=== PATIENT | female | born 1960 | race Caucasian/White ===

== ENCOUNTER 2020-07-12 22:09 | Inpatient (IN) ==
[2020-07-12] MEDS ORDERED: SODIUM CHLORIDE 0.9% 1000ML 2,000 ML IV ONE (22:40)
[2020-07-12] MEDS ORDERED: ACETAMINOPHEN 1,000 MG/100 ML VIAL IV STA (22:40)
[2020-07-12] MEDS ORDERED: TAMSULOSIN HCL 0.4 MG CAP PO ONE (22:40)
[2020-07-12] MEDS ORDERED: KETOROLAC TROMETHAMINE 15 MG/ML VIAL IV STA (22:40)
[2020-07-12] MEDS ORDERED: ONDANSETRON INJ 2 MG/ML 2 ML VIAL IV STA (22:40)
[2020-07-12] MEDS ORDERED: MoRPHine SULFATE 10 MG/ML CARP/VIAL IV STA (22:41)
[2020-07-12 23:18] LABS: Basophils # (auto) 0.01 K/uL (0-0.2); Basophils % (auto) 0.2 %; Eosinophils # (auto) 0.09 K/uL (0-0.5); Eosinophils % (auto) 1.5 %; Hematocrit (blood only) 35.5 % (37-47); Hemoglobin 11.8 g/dL (12.0-16.0); Immature Granulocytes # (auto) 0.01 K/uL (0.00-0.02); Immature Granulocytes % (auto) 0.2 %; Lymphocytes % (auto) 33.2 %; Mean Corpuscular Hemoglobin 31.6 pg (25-34); Mean Corpuscular Hgb Conc 33.2 g/dL (32-36); Mean Corpuscular Volume 95.2 fL (80-100); Mean Platelet Volume 8.4 fL (7.4-10.4); Monocytes # (auto) 0.38 K/uL (0.11-0.59); Monocytes % (auto) 6.3 %; Neutrophils # (auto) 3.53 K/uL (1.4-6.5); Neutrophils % (auto) 58.6 %; Platelet Count 215 K/uL (130-400); RDW Coefficient of Variation 13.2 % (11.5-14.5); RDW Standard Deviation 46.2 fL (36.4-46.3); Red Blood Count 3.73 M/uL (4.2-5.4); White Blood Count 6.02 K/uL (4.8-10.8)
[2020-07-12 23:34] LABS: Albumin Level 3.1 gm/dl (3.4-5.0); BUN Creatinine Ratio 23.2 (10-20); Calcium 8.1 mg/dl (8.5-10.1); Creatinine Clr Calc Pharmacy 59.1 ml/min; Potassium 3.9 mmol/L (3.5-5.1)
[2020-07-12 23:37] LABS: Bilirubin,Total 0.1 mg/dl (0.2-1); Globulin 3.1 gm/dl (2.5-4.0); Total Protein 6.2 gm/dl (6.4-8.2)
[2020-07-13 01:27] LABS: Appearance Urine Clear (Clear); Bacteria Urine Automated Negative (Negative); Bilirubin Urine Negative (Negative); Blood Urine 2+ (Negative); Color Urine Yellow; Glucose Urine UA Negative (Negative); Ketones Urine 1+ (Negative); Leukocyte Esterase Urine Negative (Negative); Nitrite Urine Negative (Negative); Protein Urine Negative (Negative); Specific Gravity Urine 1.025 (1.000-1.030); Urobilinogen Urine Negative (Negative)
--- NOTE | 2020-07-13 01:28 | Emergency Department Note ---
Impression & Plan Hydronephrosis due to obstruction of ureter, Ureterolithiasis, Nausea & vomiting, Intractable abdominal pain ED Provider Note NAME: VINNY DEWITT AGE: 59 SEX: F ARRIVES VIA: Walk-In INFORMANT: Patient, ED PROVIDER(S): Jasvir Obrien MD CHIEF COMPLAINT: Left sided abdominal pain PLAN: Disposition: Admit MEDICAL DECISION MAKING: The patient is a pleasant 59-year-old woman who presents emergency department with a acute worsening of left-sided flank and abdominal pain that began gradually on Monday seen by her PCP and had blood work performed as well as a CT scan without contrast on Monday who she reports she has yet to hear the results and also has a's ultrasound of her pelvis scheduled for Monday. However tonight she reports the pain became acutely worse and unbearable and so presents emergency department. She reports associated nausea but no vomiting. She denies any fevers, chills, cough, congestion, diarrhea. She denies any blood in her urine or burning with urination. She reports her recent urinalysis did not show infection. On arrival the patient is uncomfortable no acute distress, afebrile stable vital signs. She appears clinically dry. She has mild suprapubic and left flank discomfort without discrete tenderness. Of note, review we did review the [facility] records but unfortunately the CT report was not yet completed. I did review the images myself and there does appear to be mild-moderate left-sided hydronephrosis as well as the possibility of a 6 mm ureteral stone per my review which would correlate with the patient's symptoms and waxing and waning severity. WBC within normal limits. H/H 11.8/35.5 without prior values for comparison. Platelets within normal limits. Chemistry without acidosis. LFTs unremarkable. Lipase is not elevated. UA without evidence of infection but with RBCs. Given the patient recently had a CT scan we did attempt to avoid repeat scan if not needed and so KUB and ultrasound were ordered. KUB was performed and did not demonstrate any obvious calculus. Renal ultrasound demonstrates a 7 mm stone of the distal left ureter with associated mild left hydroureter nephrosis per preliminary stat read report. Upon re-evaluation the patient was feeling improved to still with some moderate pain but with recurring n/v. Thus given concern for patient's ability to consistently tolerate oral intake/medications we discussed option for admission for pain and nausea control, and likely urology consultation given size of stone. Patient was agreeable with this. Case was discussed with Dr. Whitlock, [facility] hospitalist, who will evaluate the patient for admission. Triage Nursing notes reviewed and agree them. Additional history obtained from [facility] records. Prior medical records reviewed Vital Signs: reviewed and remarkable for no significant abnormalities Differential diagnosis: Renal colic, UTI, appendicitis, diverticulitis, mesenteric ischemia, aortic pathology, infections, inflammatory bowel disease, PUD, biliary pathology, as well as other pathologies. ER treatment provided: See below. Diagnostics interpreted by me: Cardiac Monitoring: An order for continuous cardiac monitoring was placed and demonstrated normal sinus rhythm, 68 bpm, no ectopy. Laboratory studies: See below Imaging studies: KUB: Nonobstructive bowel gas pattern. No overt renal calculus. STATRAD: Preliminary Findings Only See Final Report For Complete Findings US RENAL: Multiple gallbladder stones. Negative for pericholecystic fluid. Normal right kidney. Mild left hydronephrosis and hydroureter Mild prominence of the distal left ureteral with a 7 mm stone within it Radiologist: Flaquito Mobley MD Study ready at 01:20 and initial results transmitted at 01:25 Consultation(s): Case was discussed with Dr. Whitlock, [facility] hospitalist, who will evaluate the patient for admission. HPI: The patient is a pleasant 59-year-old woman who presents emergency department with a acute worsening of left-sided flank and abdominal pain that began gradually on Monday seen by her PCP and had blood work performed as well as a CT scan without contrast on Monday who she reports she has yet to hear the results and also has a's ultrasound of her pelvis scheduled for Monday. However tonight she reports the pain became acutely worse and unbearable and so presents emergency department. She reports associated nausea but no vomiting. She denies any fevers, chills, cough, congestion, diarrhea. She denies any blood in her urine or burning with urination. She reports her recent urinalysis did not show infection. ROS: See above HPI for pertinent positives & negatives. A total of 10 systems reviewed and were otherwise negative. PAST MEDICAL HISTORY:See Below PAST SURGICAL HISTORY:See Below FAMILY HISTORY:See Below SOCIAL HISTORY:See Below HOME MEDICATIONS:See Below ALLERGIES:See Below VITALS:See Below PHYSICAL EXAMINATION: GENERAL: Awake, alert, uncomfortable-appearing, in no distress HENT: Normocephalic, atraumatic. Oropharynx with dry mucous membranes and otherwise unremarkable. EYES: Normal conjunctiva. Sclera non-icteric. NECK: Supple. No nuchal rigidity. FROM. No JVD. RESPIRATORY: Clear to auscultation. CARDIAC: Regular rate, normal rhythm. Extremities warm and well perfused. Pulses equal. ABDOMEN: Soft, non-distended. Mild suprapubic and left lower quadrant and flank discomfort without discrete tenderness to palpation. No rebound or guarding. No masses. RECTAL: Deferred. MUSCULOSKELETAL: Chest examination reveals no tenderness. The back is symmetrical on inspection without obvious abnormality. There is no CVA tende rness to palpation. No joint edema. LOWER EXTREMITIES: Calves are equal size bilaterally and non-tender. No edema. No discoloration. NEURO: Normal sensorium. No sensory or motor deficits noted. SKIN: No rash or jaundice noted. Jasvir Obrien MD Past Med/Surg History Medical History History of ovarian cyst Surgical History History of ankle surgery History of cystoscopy 01/05/06 with bladder sling History of gynecologic surgery vag sling operation for stress incont History of tubal ligation Family History Father Lymphoma Social History Smoking Status: Never smoker Hx Alcohol Use: Yes Alcohol type: wine Hx Substance Use: No Preferred Language: Jordanian Communication Ability: Effective Mobile [employer]r Required: No Beliefs That Will Affect Care: None marital status: Current Living Situation: Spouse Other Information That Helps Us Care for You: No Feels Safe at Home: Yes Safety Concerns: Feels Safe At This Time Assistive Devices: None Allergies Allergies Allergy/AdvReac Type Severity Reaction Status Date / Time No Known Drug Allergies Allergy Unknown Verified 07/12/20 23:48 Home Meds Home Medications Medication Instructions Recorded Confirmed No Known Home Medications 07/12/20 07/12/20 Results & Data (ED) Vital Signs Vital Signs - 24 hr 07/12/20 22:16 07/12/20 22:55 07/13/20 00:01 Temperature 36.8 C Temperature Source Oral Pulse Rate 104 H Pulse Rate [Right Finger] 85 68 Pulse Rhythm Regular Pulse Rhythm [Right Finger] Regular Pulse Strength Normal Respiratory Rate 23 16 16 Respiratory Effort / Characteristics Non-Labored Spontaneous Non-Labored Spontaneous Non-Labored Spontaneous Respiratory Depth Normal Normal Normal Respiratory Pattern Regular Blood Pressure 173/93 H Blood Pressure [Left Arm] 134/78 135/77 Blood Pressure Mean 119 Blood Pressure Mean [Left Arm] 96 96 Blood Pressure Position Sitting Pulse Oximetry 99 98 98 Oxygen Delivery Method Room Air Room Air Sepsis Recent Fever Within 48 Hours No Sepsis New/Unexplained Change in Mental Status No Sepsis Action Taken by Nursing No Action Required 07/13/20 02:01 07/13/20 03:00 Temperature Temperature Source Pulse Rate Pulse Rate [Right Finger] 62 73 Pulse Rhythm Pulse Rhythm [Right Finger] Regular Pulse Strength Respiratory Rate 14 18 Respiratory Effort / Characteristics Non-Labored Respiratory Depth Normal Normal Respiratory Pattern Blood Pressure Blood Pressure [Left Arm] 122/72 115/58 L Blood Pressure Mean Blood Pressure Mean [Left Arm] 88 77 Blood Pressure Position Pulse Oximetry 98 97 Oxygen Delivery Method Room Air Room Air Sepsis Recent Fever Within 48 Hours Sepsis New/Unexplained Change in Mental Status Sepsis Action Taken by Nursing Laboratory Data Attestation: I reviewed the patient's lab results. Result diagrams: 07/12/20 23:05 07/12/20 23:05 Lab Results 07/12/20 07/12/20 07/12/20 Range/Units 23:05 23:05 23:05 WBC 6.02 (4.8-10.8) K/uL RBC 3.73 L (4.2-5.4) M/uL Hgb 11.8 L (12.0-16.0) g/dL Hct 35.5 L (37-47) % MCV 95.2 (80-100) fL MCH 31.6 (25-34) pg MCHC 33.2 (32-36) g/dL RDW Std Deviation 46.2 (36.4-46.3) fL RDW Coeff of Bahman 13.2 (11.5-14.5) % Plt Count 215 (130-400) K/uL MPV 8.4 (7.4-10.4) fL Immature Gran % (Auto) 0.2 % Neut % (Auto) 58.6 % Lymph % (Auto) 33.2 % Stephens % (Auto) 6.3 % Eos % (Auto) 1.5 % Baso % (Auto) 0.2 % Neut # (Auto) 3.53 (1.4-6.5) K/uL Lymph # (Auto) 2.00 (1.2-3.4) K/uL Stephens # (Auto) 0.38 (0.11-0.59) K/uL Eos # (Auto) 0.09 (0-0.5) K/uL Baso # (Auto) 0.01 (0-0.2) K/uL Immature Gran # (Auto) 0.01 (0.00-0.02) K/uL Sodium 141 (136-145) mmol/L Potassium 3.9 (3.5-5.1) mmol/L Chloride 109 H (98-107) mmol/L Carbon Dioxide 28 (21-32) mmol/L Anion Gap 4.0 (3-11) BUN 21 H (7-18) mg/dl Creatinine 0.90 (0.6-1.2) mg/dl Est Cr Clr Drug Dosing 59.1 ml/min Est GFR ( Amer) 80.0 Est GFR (Non-Af Amer) 69.0 BUN/Creatinine Ratio 23.2 H (10-20) Glucose 110 H (70-99) mg/dl Calcium 8.1 L (8.5-10.1) mg/dl Total Bilirubin 0.1 L (0.2-1) mg/dl AST 18 (15-37) U/L ALT 19 (12-78) U/L Alkaline Phosphatase 69 (45-117) U/L Total Protein 6.2 L (6.4-8.2) gm/dl Albumin 3.1 L (3.4-5.0) gm/dl Globulin 3.1 (2.5-4.0) gm/dl Albumin/Globulin Ratio 1.0 (0.9-2) Lipase 173 (73-393) U/L Urine Color Cancelled Urine Appearance Cancelled Urine pH Cancelled Ur Specific Mccarr Cancelled Urine Protein Cancelled Urine Glucose (UA) Cancelled Urine Ketones Cancelled Urine Blood Cancelled Urine Nitrite Cancelled Urine Bilirubin Cancelled Urine Urobilinogen Cancelled Ur Leukocyte Esterase Cancelled Urine WBC (Auto) Cancelled Urine RBC (Auto) Cancelled U Hyaline Cast (Auto) Cancelled U Epithel Cells (Auto) Cancelled Urine Bacteria (Auto) Cancelled Ur Renal Epithelial Cell Cancelled Urine Crystals Cancelled Calcium Oxalate Crystal Cancelled Uric Acid Crystals Cancelled Triple Phos Crystals Cancelled Other Crystals Cancelled Amorphous Sediment Cancelled Granular Casts Cancelled Waxy Casts Cancelled RBC Casts Cancelled WBC Casts Cancelled Other Casts Cancelled Urine Mucus Cancelled Urine Other Cancelled Urine Trichomonas Cancelled Urine Yeast Cancelled Urine Sperm Cancelled Ur Oval Fat Bodies Cancelled 07/13/20 Range/Units 01:15 WBC (4.8-10.8) K/uL RBC (4.2-5.4) M/uL Hgb (12.0-16.0) g/dL Hct (37-47) % MCV (80-100) fL MCH (25-34) pg MCHC (32-36) g/dL RDW Std Deviation (36.4-46.3) fL RDW Coeff of Bahman (11.5-14.5) % Plt Count (130-400) K/uL MPV (7.4-10.4) fL Immature Gran % (Auto) % Neut % (Auto) % Lymph % (Auto) % Stephens % (Auto) % Eos % (Auto) % Baso % (Auto) % Neut # (Auto) (1.4-6.5) K/uL Lymph # (Auto) (1.2-3.4) K/uL Stephens # (Auto) (0.11-0.59) K/uL Eos # (Auto) (0-0.5) K/uL Baso # (Auto) (0-0.2) K/uL Immature Gran # (Auto) (0.00-0.02) K/uL Sodium (136-145) mmol/L Potassium (3.5-5.1) mmol/L Chloride (98-107) mmol/L Carbon Dioxide (21-32) mmol/L Anion Gap (3-11) BUN (7-18) mg/dl Creatinine (0.6-1.2) mg/dl Est Cr Clr Drug Dosing ml/min Est GFR ( Amer) Est GFR (Non-Af Amer) BUN/Creatinine Ratio (10-20) Glucose (70-99) mg/dl Calcium (8.5-10.1) mg/dl Total Bilirubin (0.2-1) mg/dl AST (15-37) U/L ALT (12-78) U/L Alkaline Phosphatase (45-117) U/L Total Protein (6.4-8.2) gm/dl Albumin (3.4-5.0) gm/dl Globulin (2.5-4.0) gm/dl Albumin/Globulin Ratio (0.9-2) Lipase (73-393) U/L Urine Color Yellow Urine Appearance Clear Urine pH 5.0 Ur Specific Mccarr 1.025 Urine Protein Negative Urine Glucose (UA) Negative Urine Ketones 1+ H Urine Blood 2+ H Urine Nitrite Negative Urine Bilirubin Negative Urine Urobilinogen Negative Ur Leukocyte Esterase Negative Urine WBC (Auto) 1-5 Urine RBC (Auto) 5-10 H U Hyaline Cast (Auto) 1-5 U Epithel Cells (Auto) 5-10 H Urine Bacteria (Auto) Negative Ur Renal Epithelial Cell Urine Crystals Calcium Oxalate Crystal Uric Acid Crystals Triple Phos Crystals Other Crystals Amorphous Sediment Granular Casts Waxy Casts RBC Casts WBC Casts Other Casts Urine Mucus Urine Other Urine Trichomonas Urine Yeast Urine Sperm Ur Oval Fat Bodies Administered Medications Sodium Chloride (Nss 1000ml) 1,000 mls @ 125 mls/hr IV .Q8H ANGLE Stop: 08/12/20 04:39 Last Admin: 07/13/20 04:40 Dose: 125 mls/hr Documented by: [id number] Discontinued Medications Hydromorphone HCl (Hydromorphone Inj 0.5 Mg/0.5 Ml Syr) Confirm Administered Dose 0.5 mg .ROUTE .STK-MED ONE Stop: 07/13/20 04:55 Last Admin: 07/13/20 05:02 Dose: 0.5 mg Documented by: [id number] Sodium Chloride (Nss 1000ml) 2,000 mls @ 999 mls/hr IV .Q2H1M ONE Stop: 07/13/20 00:40 Last Infusion: 07/13/20 01:09 Dose: 0 mls/hr Documented by: [id number] Admin: 07/12/20 22:47 Dose: 999 mls/hr Documented by: [id number] Acetaminophen (Ofirmev) 1,000 mg in 100 mls @ 400 mls/hr IV NOW STA Stop: 07/12/20 22:54 Last Infusion: 07/12/20 23:04 Dose: 0 mls/hr Documented by: [id number] Admin: 07/12/20 22:47 Dose: 400 mls/hr Documented by: [id number] Lactated Ringer's (Lr) 1,000 mls @ 125 mls/hr IV .Q8H ANGLE Stop: 08/12/20 02:14 Last Admin: 07/13/20 04:52 Dose: Not Given Documented by: [id number] Prochlorperazine (Compazine) 2 mls @ 1 mls/min IV ONE ONE Stop: 07/13/20 02:05 Last Admin: 07/13/20 02:14 Dose: 1 mls/min Documented by: [id number] Ketorolac Tromethamine (Ketorolac Tromethamine 15 Mg/Ml Vial) 15 mg IV NOW STA Stop: 07/12/20 22:41 Last Admin: 07/12/20 22:48 Dose: 15 mg Documented by: [id number] Ketorolac Tromethamine (Ketorolac Tromethamine 15 Mg/Ml Vial) 15 mg IV NOW STA Stop: 07/13/20 02:05 Last Admin: 07/13/20 02:14 Dose: 15 mg Documented by: [id number] Morphine Sulfate (Morphine Sulfate 10 Mg/Ml Carp/Vial) 6 mg IV NOW STA Stop: 07/12/20 22:42 Last Admin: 07/12/20 22:48 Dose: 6 mg Documented by: [id number] Morphine Sulfate (Morphine Sulfate 4 Mg/Ml 1 Ml Carp\Vial) 4 mg IV Q2H PRN PRN Reason: Pain Stop: 07/27/20 02:03 Last Admin: 07/13/20 04:04 Dose: 4 mg Documented by: [id number] Admin: 07/13/20 02:14 Dose: 4 mg Documented by: [id number] Ondansetron HCl (Ondansetron Inj 2 Mg/Ml 2 Ml Vial) 4 mg IV NOW STA Stop: 07/12/20 22:41 Last Admin: 07/12/20 22:49 Dose: 4 mg Documented by: [id number] Ondansetron HCl (Ondansetron Inj 2 Mg/Ml 2 Ml Vial) Confirm Administered Dose 4 mg .ROUTE .STK-MED ONE Stop: 07/13/20 04:55 Last Admin: 07/13/20 05:02 Dose: 4 mg Documented by: [id number] Tamsulosin HCl (Tamsulosin Hcl 0.4 Mg Cap) 0.4 mg PO NOW ONE Stop: 07/12/20 22:41 Last Admin: 07/12/20 22:47 Dose: 0.4 mg Documented by: [id number] Discharge Plan Visit Data Chief Complaint: Abdominal Pain Stated Complaint: ABDOMINAL PAIN ED Provider: Jasvir Obrien Discharge Problem: Hydronephrosis due to obstruction of ureter, Ureterolithiasis, Nausea & vomiting, Intractable abdominal pain Patient Disposition: Admitted As Inpatient Discharge Instructions Interventions: ED Discharge Assessment Last Done: 07/13/20 04:05 Discharge Problem: Nausea & vomiting Qualifiers: Vomiting type: unspecified Vomiting Intractability: unspecified Qualified Code(s): R11.2 - Nausea with vomiting, unspecified
[2020-07-13] MEDS ORDERED: PROCHLORPERAZINE 2 ML IV ONE (02:04)
[2020-07-13] MEDS ORDERED: KETOROLAC TROMETHAMINE 15 MG/ML VIAL IV STA (02:04)
[2020-07-13] MEDS: MoRPHine SULFATE 4 MG/ML 1 ML CARP\\VIAL IV PRN ×2 (02:14→04:04)
[2020-07-13] MEDS ORDERED: LACTATED RINGER'S 1,000 ML IV SCH (02:15)
[2020-07-13] MEDS ORDERED: HYDROmorphone INJ 0.5 MG/0.5 ML SYR IV PRN (04:40)
[2020-07-13] MEDS ORDERED: ONDANSETRON INJ 2 MG/ML 2 ML VIAL IV PRN ×2 (04:40→11:12)
[2020-07-13] MEDS: SODIUM CHLORIDE 0.9% 1000ML 1,000 ML IV SCH ×3 (04:40→22:45)
[2020-07-13] MEDS ORDERED: ACETAMINOPHEN 325 MG TAB PO PRN (04:40)
[2020-07-13] MEDS ORDERED: KETOROLAC TROMETHAMINE 15 MG/ML VIAL IV PRN (04:40)
--- NOTE | 2020-07-13 04:48 | History and Physical Report ---
DATE OF ADMISSION: 07/13/2020 CHIEF COMPLAINT: Left flank pain. HISTORY OF PRESENT ILLNESS: This is a 59-year-old female with past medical history significant for Lyme disease, was having left flank pain since last Monday, saw the PCP on July 08 and had a CAT scan ordered, she did not have the results yet, but in the epic the CAT scan showing mild dilatation of left renal pelvis, 4 mm calcification present in the left pelvis in the region of the left ureter suggesting a distal ureteral calculus.The patient came here with significant left flank pain and nausea and had a couple of episodes of vomiting in the ER and imaging studies here, renal ultrasound showing the preliminary report, distal left 7 mm stone with left hydronephrosis and hydroureter. The patient required significant pain medications in the ER, still has some soreness and some nausea. Denies any fever, chills. Denies any hematuria or burning micturitions. No chest pain, no shortness of breath, no cough, no headache, no blurred vision, no earache, no runny nose, no sore throat, no dysphagia, no loss of sense of smell or taste. No exposure to any COVID patients. No rash, no swelling in the legs. ALLERGIES: No known drug allergies. PAST MEDICAL HISTORY: As mentioned above. PAST SURGICAL HISTORY: Ligation of oviducts, repair of the bladder defect, colonoscopy. MEDICATIONS: None currently. FAMILY HISTORY: Significant for maternal grandfather, diabetes. Mother had macular degeneration. SOCIAL HISTORY: No smoking, no alcohol, no drug use. REVIEW OF SYMPTOMS: As per HPI. Rest of review of symptoms negative. PHYSICAL EXAMINATION: GENERAL: The patient is of moderate build, not in acute distress. VITAL SIGNS: Temperature 36.8, pulse 73, respiratory rate 18, blood pressure 115/58, oxygen 97% room air. HEENT: Pupils equal, round, reactive to light. Oral mucosa moist. NECK: No JVD, no neck masses. CARDIOVASCULAR: S1, S2 heard, regular rate and rhythm, no murmur, no gallop. RESPIRATORY SYSTEM: Normal AP diameter. No accessory muscle use. No wheezing, no crackles. ABDOMEN: Soft, bowel sounds present, nontender. No distention, no CVA tenderness present, no guarding, no rigidity. CENTRAL NERVOUS SYSTEM: Cranial nerves II-XII grossly intact. Nonfocal. EXTREMITIES: No edema, no erythema. LABORATORY DATA: WBC 6.6, hemoglobin 11.8, hematocrit 35.5, platelets 215. Sodium 141, potassium 3.9, chloride 109, bicarbonate 28, BUN 21, creatinine 0.9, serum glucose 110, calcium 8.1, total bilirubin 0.1, AST 18, ALT 19, alkaline phosphatase 69, lipase 173. Urinalysis +2 blood, +1 ketones. Renal ultrasound 7 mm left distal ureteral stone. ASSESSMENT AND PLAN: This is a 59-year-old female presents with renal colic. 1. Renal colic Distal left ureter stone 7 mm in renal ultrasound and 4 mm in CAT scan done as outpatient. Is having significant pain requiring pain medications.No signs of infection. We will admit to medical floor. Will keep n.p.o. except meds, IV fluids, IV pain meds p.r.n., and consult urology in the a.m. for further recommendations. 2. Deep venous thrombosis prophylaxis, sequential compression devices. DISPOSITION: To be monitored in medical floor. MTDD
[2020-07-13] MEDS ORDERED: ONDANSETRON INJ 2 MG/ML 2 ML VIAL ONE (04:54)
[2020-07-13] MEDS ORDERED: HYDROmorphone INJ 0.5 MG/0.5 ML SYR ONE (04:54)
[2020-07-13] MEDS ORDERED: CIPROFLOXACIN / D5W 400 MG/200 ML BAG IV SCH (06:00)
[2020-07-13 07:06] LABS: Basophils # (auto) 0.01 K/uL (0-0.2); Basophils % (auto) 0.1 %; Hematocrit (blood only) 36.2 % (37-47); Hemoglobin 12.1 g/dL (12.0-16.0); Lymphocytes # (auto) 0.67 K/uL (1.2-3.4); Lymphocytes % (auto) 9.4 %; Mean Corpuscular Hemoglobin 31.7 pg (25-34); Mean Corpuscular Hgb Conc 33.4 g/dL (32-36); Mean Corpuscular Volume 94.8 fL (80-100); Mean Platelet Volume 8.5 fL (7.4-10.4); Monocytes % (auto) 5.6 %; Neutrophils # (auto) 6.01 K/uL (1.4-6.5); Neutrophils % (auto) 84.9 %; Platelet Count 198 K/uL (130-400); RDW Coefficient of Variation 13.3 % (11.5-14.5); RDW Standard Deviation 46.2 fL (36.4-46.3); Red Blood Count 3.82 M/uL (4.2-5.4); White Blood Count 7.09 K/uL (4.8-10.8)
[2020-07-13 07:48] LABS: BUN Creatinine Ratio 22.5 (10-20); Calcium 8.1 mg/dl (8.5-10.1); Creatinine Clr Calc Pharmacy 53.2 ml/min; Est GFR (African American) 70.4; Est GFR (Non-African American) 60.8; Magnesium 2.1 mg/dl (1.8-2.4); Potassium 4.2 mmol/L (3.5-5.1)
--- NOTE | 2020-07-13 08:01 | XRay Report ---
KUB CLINICAL HISTORY: Left flank pain. FINDINGS: 2 AP supine abdominal radiographs are obtained. No prior studies are available for comparis on at the time of dictation. There is a nonobstructed abdominal bowel gas pattern. Moderate fecal ret ention is noted in the right colon. A 7 mm calcification projects over the left vesicoureteral juncti on and likely represents a distal left ureteral stone. No additional calcifications are seen projecti ng over either kidney or along the course of the right ureter. The bony structures appear intact. The lung bases are clear as imaged. IMPRESSION: A 7 mm calcification projects over the left vesicoureteral junction and is concerning for distal ureteral stone. Electronically signed by: Cullen Thomas M.D. 07/13/2020 7:59 AM
--- NOTE | 2020-07-13 08:24 | Urology Consultation ---
Date of Consultation July 13, 2020 Assessment & Plan (1) Ureterolithiasis: 59 yo F admitted for left renal colic secondary to left ureteral stone and hydronephrosis. - Afebrile, nontoxic, creatinine and WBC WNL - Keep NPO - Strain all urine - Patient wishes to proceed with surgical intervention - Findings reviewed with Dr. Díaz. Given her intractable pain and nausea in the context of an obstructing left ureteral stone, will proceed with OR for cystoscopy and Left stent placement. - Risks and benefits to be reviewed with patient by Dr. Díaz. OR notified. - Preoperative CXR and EKG ordered. Preoperative COVID test ordered. - Will cover with IV Ciprofloxacin preoperatively. - Patient agreeable with above plan, all questions answered. History of Present Illness Reason for Consultation: Left renal colic Attending Physician: Suhas Reid MD History of Present Illness 59 yo F admitted for left renal colic secondary to left ureteral stone and hydronephrosis. Patient presented to [facility] ED on 07/12/2020 with symptoms of left flank pain. She was recently evaluated by her PCP outpatient and underwent CT scan on 07/08. She began to experience intractable left flank pain prompting ED presentation. She was afebrile on arrival. Lab work: creatinine 0.90, WBC 6.02, UA with 5-10 RBCs, otherwise negative. No urine culture collected. She was admitted for further pain management and evaluation. Our service is consulted for left ureteral stone. Imaging: KUB 07/12 demonstrates a 7 mm calcification projects over the left vesicoureteral junction and is concerning for distal ureteral stone. LATOYA 07/12 showed a 7 mm obstructing calculus is seen just above the left vesicoureteral junction an causes moderate left hydroureteronephrosis. Possible 4 mm nonobstructing left lower pole calculus. No right-sided hydronephrosis. Chart review: Afebrile Creatinine 1.00 WBC 7.09 Imaging as above Pt examined at bedside this AM. Awake, sitting up in bed. Appears uncomfortable, but no acute distress. Reports left-sided flank and abdominal pain, notes relief with pain medication. Persistent nausea and vomiting this AM, has recently had dose of Zofran. No dysuria or hematuria. Voiding without difficulty. No spontaneous stone passage since arrival. Some chills, no fever. No prior urological evaluations. No prior history of kidney stones. No family history of stones. No additional concerns today. Allergies Allergy/AdvReac Type Severity Reaction Status Date / Time No Known Drug Allergies Allergy Unknown Verified 07/12/20 23:48 Home Medications Home Medications Medication Instructions Recorded Confirmed Type No Known Home Medications 07/12/20 07/12/20 History Patient History Medical History History of ovarian cyst Surgical History History of ankle surgery History of cystoscopy 01/05/06 with bladder sling History of gynecologic surgery vag sling operation for stress incont History of tubal ligation Family History Father Lymphoma Social History Smoking Status: Never smoker Hx Alcohol Use: Yes Alcohol type: wine Hx Substance Use: No Preferred Language: Portuguese Communication Ability: Effective Credentialing Assistant Required: No Beliefs That Will Affect Care: None marital status: Current Living Situation: Spouse Other Information That Helps Us Care for You: No Feels Safe at Home: Yes Safety Concerns: Feels Safe At This Time Assistive Devices: None Review of Systems Review of Systems: All systems reviewed & are unremarkable except as noted in HPI & below Constitutional: as per Subjective / HPI Gastrointestinal: as per Subjective / HPI Genitourinary: as per Subjective / HPI Physical Exam Constitutional: well developed and well nourished; no acute distress and not ill appearing Respiratory: normal respiratory effort and able to speak in complete sentences; no respiratory distress and no labored breathing Cardiovascular: Extremities: no pedal edema Gastrointestinal (Abdomen): Inspection/Auscultation: abdomen normal to inspection; abdomen not distended Percussion/Palpation: abdomen soft; abdomen nontender and no guarding Musculoskeletal: Head/Neck/Chest: normocephalic and head atraumatic Extremities: extremities normal to inspection Skin: no rashes, warm and dry Neurologic: moves all extremities and awake Psychiatric: A+Ox3, euthymic affect Genitourinary: no CVA tenderness Results & Data ([facility]) Vital Signs (Past 12 Hours) Vital Signs Temp Pulse Pulse Resp BP BP Pulse Ox 07/13/20 07:03 36.8 C 68 16 117/58 L 96 07/13/20 04:20 36.8 C 84 16 137/76 93 07/13/20 04:05 92 H 16 169/85 H 97 07/13/20 03:00 73 18 115/58 L 97 07/13/20 02:01 62 14 122/72 98 07/13/20 00:01 68 16 135/77 98 07/12/20 22:55 85 16 134/78 98 07/12/20 22:16 36.8 C 104 H 23 173/93 H 99 PG Care Time/CCT Total # of Minutes Spent Total Time Spent with Patient: Total time spent is greater than 50% in coordination of care (as documented) at patient's floor/unit and/or counseling patient: Coding Level of Care Code 84850 Inpt Consult Level 4 Diagnoses Ureterolithiasis N20.1
--- NOTE | 2020-07-13 08:28 | Ultrasound Report ---
ULTRASOUND KIDNEYS AND BLADDER CLINICAL HISTORY: Left flank pain. COMPARISON STUDY: Abdominal radiograph dated 07/12/2020. TECHNIQUE: Real-time, grayscale, and color flow sonography of the kidneys and bladder is performed. I mages are reviewed in the transverse and longitudinal planes. FINDINGS: Kidneys: The kidneys are normal in size and echotexture. The right kidney measures 11.0 x 3.7 x 4.3 c m and the left kidney measures 10.7 x 5.3 x 5.7 cm. A 7 mm obstructing calculus is seen in the distal left ureter just above the vesicoureteral junction. This causes moderate left hydroureteronephrosis. There is no right-sided hydronephrosis. Question additional 4 mm nonobstructing calculus in the left lower pole. No shadowing calculi are seen in the right kidney. There is no sonographic evidence of c ontour deforming renal mass lesion. There is trace left-sided perinephric fluid. Bladder: The bladder is normal in appearance. Only the right ureteral jet was seen. Upper abdomen: Numerous gallstones are incidentally noted. IMPRESSION: 1. A 7 mm obstructing calculus is seen just above the left vesicoureteral junction an causes moderate left hydroureteronephrosis. 2. Question an additional 4 mm nonobstructing left lower pole calculus. 3. There is no right-sided hydronephrosis. 4. Cholelithiasis. ACT 112: Negative or not required by law. Electronically signed by: Cullen Thomas M.D. 07/13/2020 8:27 AM
[2020-07-13] MEDS ORDERED: PROMETHAZINE HCL 12.5 MG in SODIUM CHLORIDE 0.9% 50 ML IV STA (08:34)
--- NOTE | 2020-07-13 09:08 | XRay Report ---
XR chest 1V portable HISTORY: Pre-op COMPARISON: None. FINDINGS: Mild upper right tracheal deviation. The lungs are clear. The heart is normal in size. No p neumothorax. No pleural effusions. The lungs are clear. IMPRESSION: 1. No acute process within the chest. 2. Mild upper right paratracheal deviation. This is indeterminate but favors a left thyroid goiter. F ollow-up nonemergent thyroid ultrasound can be used for further evaluation. ACT 112: Positive. There are findings on this exam that require communication between the performing entity and the patient following Patient Test Result Information Act ([place] Act 112) guidelines. Electronically signed by: Valentín Murphy M.D. 07/13/2020 9:07 AM
[2020-07-13] MEDS ORDERED: HYDROmorphone INJ 1 MG/ML SYRINGE IV PRN (11:12)
[2020-07-13] MEDS ORDERED: ePHEDrine sulfate 50 MG/ML AMP IV PRN (11:12)
[2020-07-13] MEDS ORDERED: ATROPINE SULFATE 0.1 MG/ML 10ML SYR IV PRN (11:12)
[2020-07-13] MEDS ORDERED: fentaNYL citrate 100 MCG/2 ML VIAL IV PRN (11:12)
[2020-07-13] MEDS ORDERED: MIDAZOLAM HCL 1 MG/ML 2ML VIAL ONE (11:13)
[2020-07-13] MEDS ORDERED: fentaNYL citrate 100 MCG/2 ML VIAL ONE (11:14)
--- NOTE | 2020-07-13 11:14 | Anesthesiology Consultation ---
Date of Service July 13, 2020 Assessment & Plan (1) Encounter for pre-operative examination: Chart Review Chart Review: Acceptable Risk for Surgery and Patient NOT seen in Pre Admission Testing Consults Requested none History Surgery Operation Date: 07/13/20 14:55 Proposed Procedures p Cystoscopy, Left Stent Placement - Yann Díaz DO Height/Weight Height: 5 ft 5 in Weight: 64.6 kg Allergies Allergy/AdvReac Type Severity Reaction Status Date / Time No Known Drug Allergies Allergy Unknown Verified 07/12/20 23:48 Medications Home Medications Medication Instructions Recorded Confirmed Last Taken No Known Home Medications 07/12/20 07/12/20 Unknown Active Medications Generic Name Dose Route Start Last Admin Trade Name Freq PRN Reason Stop Dose Admin Hydromorphone HCl 0.5 mg 07/13/20 04:40 07/13/20 11:11 Hydromorphone Inj 0.5 Mg/0.5 Ml Syr IV 07/27/20 04:39 0.5 mg Q4H PRN Administration Pain Sodium Chloride 1,000 mls @ 125 mls/hr 07/13/20 04:40 07/13/20 04:40 Nss 1000ml IV 08/12/20 04:39 125 mls/hr .Q8H ANGLE Administration Ketorolac Tromethamine 15 mg 07/13/20 04:40 07/13/20 06:40 Ketorolac Tromethamine 15 Mg/Ml Vial IV 07/18/20 04:39 15 mg Q6H PRN Administration Pain NPO Date Last Intake of Fluids: 07/13/20 Time Last Intake of Fluids: 04:15 Date Last Intake of Solids: 07/13/20 Time Last Intake of Solids: 04:15 Past Medical History Medical History History of ovarian cyst Exercise / Class Metabolic Activity II 4-5 Yardwork/Stairs/Walk up hill Past Family History Family History Father Lymphoma Past Surgical History Surgical History History of ankle surgery History of cystoscopy 01/05/06 with bladder sling History of gynecologic surgery vag sling operation for stress incont History of tubal ligation Past Anesthesia History No Hx of Anesthesia Complications and No Family Hx of Anesthesia Complications History of PONV No Hx of PONV and No Hx of Motion Sickness Social History Smoking Status: Never smoker Do You Dip or Chew Tobacco: No Hx Alcohol Use: Yes Alcohol type: wine alcohol intake frequency: holidays/special occasions only Hx Substance Use: No substance use type: does not use Physical Exam Vital Signs Last Vital Signs Temp 36.8 C 07/13/20 07:03 Pulse 68 07/13/20 07:03 Resp 16 07/13/20 07:03 BP 117/58 L 07/13/20 07:03 Pulse Ox 96 07/13/20 07:03 Testing Laboratory Results 07/13/20 06:53 07/13/20 06:53 Urine Color Yellow 07/13/20 01:15 Urine Appearance Clear (Clear) 07/13/20 01:15 Urine pH 5.0 (4.5-7.5) 07/13/20 01:15 Ur Specific [place] 1.025 (1.000-1.030) 07/13/20 01:15 Urine Protein Negative (Negative) 07/13/20 01:15 Urine Glucose (UA) Negative (Negative) 07/13/20 01:15 Urine Ketones 1+ (Negative) H 07/13/20 01:15 Urine Nitrite Negative (Negative) 07/13/20 01:15 Ur Leukocyte Esterase Negative (Negative) 07/13/20 01:15 Urine WBC (Auto) 1-5 /hpf (0-5) 07/13/20 01:15 Urine RBC (Auto) 5-10 /hpf (0-4) H 07/13/20 01:15 U Hyaline Cast (Auto) 1-5 /lpf (0-5) 07/13/20 01:15 U Epithel Cells (Auto) 5-10 /lpf (0-5) H 07/13/20 01:15 Urine Bacteria (Auto) Negative (Negative) 07/13/20 01:15 Electrocardiogram Date: 07/13/20 Findings: + NSR @ (84)
--- NOTE | 2020-07-13 11:17 | Electrocardiogram Report ---
Test Reason : Blood Pressure : / mmHG Vent. Rate : 084 BPM Atrial Rate : 084 BPM P-R Int : 154 ms QRS Dur : 096 ms QT Int : 414 ms P-R-T Axes : 019 040 041 degrees QTc Int : 489 ms Normal sinus rhythm Normal ECG When compared with ECG of 16-JAN-2006 08:34, QT has lengthened Confirmed by Jaguar Limon ([id number]) on 07/13/2020 11:16:57 AM Referred By: REFERRED SELF Confirmed By:Alberto Limon
[2020-07-13] MEDS ORDERED: DIATRIZOATE MEGLUMINE 30% 100ML VIAL INSTIL ONE (12:16)
--- NOTE | 2020-07-13 12:17 | Operative Report ---
PG Post Operative Report Pre & Post Diagnosis Ureteral Stone Left Same Operation Date: 07/13/20 14:55 <No data on this case meets the specified criteria> I identified the patient and participated in the time-out.: Yes Procedure Cystoscopy with left retrograde pyelogram, aspiration of urine, and stent placement. Operation Date: 07/13/20 14:55 <No data on this case meets the specified criteria> Surgeon Yann Díaz, II, DO Manager Psychology None Estimated Blood Loss 1 Findings Consistent with Post-Op Diagnosis Stent placed in good position. Specimens None Drains 6 Fr Multilength without tether Anesthesia Type MAC Complications none Disposition Disposition: Recovery Room Indications Patient with obstruction. Risks and benefits discussed at length. Description of Procedure Patient was consented and brought back to the operating room. Patient was placed under anesthesia in the supine position and moved to the dorsal lithotomy position. Patient was prepped and draped in the regular sterile fashion. A time out was completed. A 30degree Cystoscope was placed into the bladder and the entire bladder was examined. The UO's were identified. The UO was cannulized with a catheter, urine was aspirated, and a retrograde pyelogram was completed. Urine aspirated from the ureter was sent for microscopic analysis. A wire was then placed. With the wire in place, a 6 Fr Double J stent was placed. It was confirmed with fluoroscopy. With the stent in place, the bladder was emptied. The scope was removed. The patient was cleaned, aroused from anesthesia, and transferred to the pacu in stable condition having tolerated the procedure well with no complications. I was present and participated in all aspects of the procedure. The patient will be monitored in the PACU until transferred. I attest to the content of the Intraoperative Record and any orders documented therein. Any exceptions are noted below.
--- NOTE | 2020-07-13 12:40 | Fluoroscopy Report ---
FL retrograde includes kub HISTORY: 59 years-old Female CYSTO LT SIDE follow-up study in a patient with left ureteral calculus COMPARISON: KUB 07/12/2020 TECHNIQUE: 2 spot. Images of the abdomen left abdomen and pelvis were obtained utilizing 16.1 seconds fluoroscopy time FINDINGS: Left ureteral stent appears to be in satisfactory positioning. Contrast is noted within the mid and d istal left ureter. No definite renal or ureteral calculi identified. IMPRESSION: Fluoroscopic assistance as above. Please see procedural report for further details. ACT 112: Negative or not required by law. The above report was generated using voice recognition software. It may contain grammatical, syntax o r spelling errors. Electronically signed by: Delmer Craven M.D. 07/13/2020 12:39 PM
--- NOTE | 2020-07-13 15:17 | Anesthesiology Progress Note ---
Date of Service July 13, 2020 Anesthesia Post Procedure Vital Signs Vital Signs: Temp Pulse Pulse Pulse Resp BP BP 07/13/20 15:04 36.9 C 63 16 100/59 L 07/13/20 14:07 36.6 C 67 16 103/57 L 07/13/20 13:32 63 16 93/55 L 07/13/20 13:10 37.1 C 75 14 98/58 L 07/13/20 12:50 66 13 101/52 L 07/13/20 12:40 36.9 C 69 14 114/54 L 07/13/20 12:30 77 19 97/55 L 07/13/20 12:24 36.6 C 79 14 103/59 L 07/13/20 11:36 36.7 C 80 20 124/59 L 07/13/20 07:03 36.8 C 68 16 117/58 L 07/13/20 04:20 36.8 C 84 16 137/76 07/13/20 04:05 92 H 16 169/85 H 07/13/20 03:00 73 18 115/58 L 07/13/20 02:01 62 14 122/72 07/13/20 00:01 68 16 135/77 07/12/20 22:55 85 16 134/78 07/12/20 22:16 36.8 C 104 H 23 173/93 H Pulse Ox 07/13/20 15:04 07/13/20 14:07 99 07/13/20 13:32 97 07/13/20 13:10 97 07/13/20 12:50 95 07/13/20 12:40 95 07/13/20 12:30 95 07/13/20 12:24 95 07/13/20 11:36 97 07/13/20 07:03 96 07/13/20 04:20 93 07/13/20 04:05 97 07/13/20 03:00 97 07/13/20 02:01 98 07/13/20 00:01 98 07/12/20 22:55 98 07/12/20 22:16 99 Pain Intensity Left Lower Abdomen: Pain Intensity: 6 Transfer of Care Handoff Completed per policy Notes Mental Status: alert / awake / arousable and participated in evaluation Patient Amnestic to Procedure: Yes Nausea / Vomiting: adequately controlled Pain: adequately controlled Airway Patency, RR, SpO2: stable & adequate BP & HR: stable & adequate Hydration State: stable & adequate Anesthetic Complications: no major complications apparent and Pt Satisfied with anesthetic care
--- NOTE | 2020-07-13 20:15 | Communication Note ---
Date of Service: July 13, 2020 Admitted early this morning with left ureteral calculus + hydronephrosis. Urology consulted. Cysto with left ureteral stent placement performed by Dr. Díaz. Rechecked this afternoon. Doing well. Less flank pain. No fever. Some gross hematuria. Further surgical management per Urology.
[2020-07-14 04:02] VITALS: PULSE 77
[2020-07-14] MEDS: SODIUM CHLORIDE 0.9% 1000ML 1,000 ML IV SCH (06:35)
--- NOTE | 2020-07-14 07:39 | Urology Progress Note ---
Date of Service July 14, 2020 Assessment & Plan (1) Ureterolithiasis: 59 yo F POD #1 s/p cystoscopy and left stent placement with Dr. Díaz. - Doing well post-op, progressing as expected - Tolerating stent with minimal bother - She feels ready for discharge today, okay to d/c to home from perspective - Recommend d/c with Tamsulosin, prn Pyridium, prn oxybutynin, and prn pain control - Expected clinical course reviewed, all questions answered - Will arrange outpatient follow-up with our service for definitive stone management Thank you for allowing us to participate in the acute care of Mrs. Ewing. Please reconsult us with additional questions, concerns or changes in patient status. Admission and Anticipated Discharge Date Admission Date: July 13, 2020 Subjective 59 yo F POD #1 s/p cystoscopy and left stent placement. Pt awake, alert and sitting up in bed this AM. Doing well, no issues overnight. Tolerating ureteral stent without bother. Has not utilized pain medication post op. Denies suprapubic, abdominal or flank pain. Voiding without difficulty. No dysuria. Notes some pink-tinged urine. Tolerating regular diet, no nausea or vomiting. No BM, +flatus. No fever or chills. Feels ready to go home today. No new labs at time of visit. No additional concerns today. Review of Systems Constitutional: as per Subjective / HPI Gastrointestinal: as per Subjective / HPI Genitourinary: as per Subjective / HPI Physical Exam Constitutional: well developed and well nourished; no acute distress and not ill appearing Respiratory: normal respiratory effort and able to speak in complete sentences; no respiratory distress and no labored breathing Cardiovascular: Extremities: no pedal edema Gastrointestinal (Abdomen): Inspection/Auscultation: abdomen normal to inspection; abdomen not distended Percussion/Palpation: abdomen soft; abdomen nontender and no guarding Musculoskeletal: Head/Neck/Chest: normocephalic and head atraumatic Extremities: extremities normal to inspection Skin: no rashes, warm and dry Neurologic: moves all extremities and awake Psychiatric: A+Ox3, euthymic affect Genitourinary: no CVA tenderness Results & Data ([facility]) Vital Signs (Past 12 Hours) Vital Signs Temp Pulse Resp BP Pulse Ox 07/14/20 04:02 37.3 C 77 18 127/72 96 07/13/20 23:20 37.1 C 64 14 118/68 95 07/13/20 19:53 37.2 C 66 17 109/62 97 PG Care Time/CCT Total # of Minutes Spent Total Time Spent with Patient: Total time spent is greater than 50% in coordination of care (as documented) at patient's floor/unit and/or counseling patient: Coding Level of Care Code 24335 Subseq Hosp Care Lvl 2 Diagnoses Ureterolithiasis N20.1
[2020-07-14 08:48] VITALS: BP 123/67; TEMP 98.6; O2SAT 97
--- NOTE | 2020-07-14 10:33 | Anesthesiology Progress Note ---
Date of Service July 14, 2020 Anesthesia Post Procedure Vital Signs Vital Signs: Temp Pulse Pulse Resp BP Pulse Ox 07/14/20 08:46 37.0 C 77 18 123/67 97 07/14/20 04:02 37.3 C 77 18 127/72 96 07/13/20 23:20 37.1 C 64 14 118/68 95 07/13/20 19:53 37.2 C 66 17 109/62 97 07/13/20 16:08 36.6 C 71 16 121/69 100 07/13/20 15:04 36.9 C 63 16 100/59 L 07/13/20 14:07 36.6 C 67 16 103/57 L 99 07/13/20 13:32 63 16 93/55 L 97 07/13/20 13:10 37.1 C 75 14 98/58 L 97 07/13/20 12:50 66 13 101/52 L 95 07/13/20 12:40 36.9 C 69 14 114/54 L 95 07/13/20 12:30 77 19 97/55 L 95 07/13/20 12:24 36.6 C 79 14 103/59 L 95 07/13/20 11:36 36.7 C 80 20 124/59 L 97 Pain Intensity Left Lower Abdomen: Pain Intensity: 0 Notes Mental Status: alert / awake / arousable and participated in evaluation Patient Amnestic to Procedure: Yes Nausea / Vomiting: adequately controlled Pain: adequately controlled Airway Patency, RR, SpO2: stable & adequate BP & HR: stable & adequate Hydration State: stable & adequate Anesthetic Complications: no major complications apparent and Pt Satisfied with anesthetic care
--- NOTE | 2020-07-14 11:30 | Hospitalist Progress Note ---
Date of Service July 14, 2020 Assessment & Plan (1) Ureteral calculus: Presented with left flank pain, nausea, vomiting. Outpatient CT demonstrated left ureteral calculus. Ultrasound showed 7 mm left ureteral calculus just above the vesicoureteral junction associated with moderate hydronephrosis. Urine did not appear to be infected. No fever or leukocytosis. Urology consulted. Received IV fluids and analgesics. Left ureteral stent placed by Dr. Díaz on 07/13. Discharged on tamsulosin, PRN phenazopyridine, PRN oxybutynin, PRN oxycodone/acetaminonophen. Follow-up with Urology in clinic for stent removal and lithotripsy. (2) Hyperglycemia: FBS was 143 on 07/13. No history of diabetes mellitus. Hyperglycemia probably due to stress of acute illness. Check follow-up FBS +/- Hgb A1c in clinic. (3) Abnormal chest x-ray: Portable chest x-ray 07/13: "Mild upper right paratracheal deviation. This is indeterminate but favors a left thyroid goiter. Follow-up nonemergent thyroid ultrasound can be used for further evaluation." Outpatient thyroid US recommended; will ask PCP to schedule. (4) Cholelithiasis: Cholelithiasis incidentally noted on renal US 07/12/20. (5) DVT prophylaxis: SCD's ordered. Ambulating. (6) Discharge planning issues: Discharge to home. Internal Medicine follow-up with Dr. Alexander. Urology follow-up with Dr. Díaz / [facility]. Admission and Anticipated Discharge Date Admission Date: July 13, 2020 Subjective Recheck for ureteral colic. Patient seen in their room around 1100. Doing well. Flank pain resolved. No dysuria. Gross hematuria resolved. No fever. No further nausea. Physical Exam Neck: Thyroid: no thyromegaly (none appreciated) Respiratory: normal respiratory effort, lungs clear to auscultation Cardiovascular: Rate/Rhythm: regular rate and regular rhythm Extremities: no edema Gastrointestinal (Abdomen): normal bowel sounds, soft, nontender, no hepatosplenomegaly Musculoskeletal: Extremities: no cyanosis Psychiatric: Orientation: alert and oriented x 3 Results & Data Results & Data ([facility]) Vital Signs (Past 12 Hours) Vital Signs Temp Pulse Resp BP Pulse Ox 07/14/20 08:46 37.0 C 77 18 123/67 97 07/14/20 04:02 37.3 C 77 18 127/72 96 Laboratory Results 07/13/20 06:53 07/13/20 06:53
--- NOTE | 2020-07-14 18:57 | Discharge Summary ---
Date of Service Date of Admission: 07/13/20 Date of Discharge: 07/14/20 Admission HPI Per Admitting Provider This is a 59-year-old female with past medical history significant for Lyme disease, was having left flank pain since last Monday, saw the PCP on July 08 and had a CAT scan ordered, she did not have the results yet, but in the epic the CAT scan showing mild dilatation of left renal pelvis, 4 mm calcification present in the left pelvis in the region of the left ureter suggesting a distal ureteral calculus.The patient came here with significant left flank pain and nausea and had a couple of episodes of vomiting in the ER and imaging studies here, renal ultrasound showing the preliminary report, distal left 7 mm stone with left hydronephrosis and hydroureter. The patient required significant pain medications in the ER, still has some soreness and some nausea. Denies any fever, chills. Denies any hematuria or burning micturitions. No chest pain, no shortness of breath, no cough, no headache, no blurred vision, no earache, no runny nose, no sore throat, no dysphagia, no loss of sense of smell or taste. No exposure to any COVID patients. No rash, no swelling in the legs. Principal Diagnosis left ureteral calculus with hydronephrosis OTHER ACUTE / NEW DIAGNOSES hyperglycemia abnormal chest x-ray (? thyromegaly) cholelithiasis Discharge Data Allergies Allergy/AdvReac Type Severity Reaction Status Date / Time No Known Drug Allergies Allergy Unknown Verified 07/12/20 23:48 Consultations 07/13/20 02:04 ED Decision to Admit Stat 07/13/20 04:40 Consult Case Management - Discharge Planning Routine 07/13/20 08:00 Consult Urology Routine Procedures Performed Operation Date: 07/13/20 14:55 Actual Procedures p Cystoscopy, Left Stent Placement(Left) - Yann Díaz, Ordered Studies 07/12/20 23:22 US renal/blad retro comp Urgent 07/13/20 10:00 FL retrograde includes kub Routine Hospital Course (1) Ureteral calculus: Presented with left flank pain, nausea, vomiting. Outpatient CT demonstrated left ureteral calculus. Ultrasound showed 7 mm left ureteral calculus just above the vesicoureteral junction associated with moderate hydronephrosis. Urine did not appear to be infected. No fever or leukocytosis. Urology consulted. Received IV fluids and analgesics. Left ureteral stent placed by Dr. Díaz on 07/13. Discharged on tamsulosin, PRN phenazopyridine, PRN oxybutynin, PRN oxycodone/jennifer taminonophen. Follow-up with Urology in clinic for stent removal and lithotripsy. (2) Hyperglycemia: FBS was 143 on 07/13. No history of diabetes mellitus. Hyperglycemia probably due to stress of acute illness. Check follow-up FBS +/- Hgb A1c in clinic. (3) Abnormal chest x-ray: Portable chest x-ray 07/13: "Mild upper right paratracheal deviation. This is indeterminate but favors a left thyroid goiter. Follow-up nonemergent thyroid ultrasound can be used for further evaluation." Outpatient thyroid US recommended; will ask PCP to schedule. (4) Cholelithiasis: Cholelithiasis incidentally noted on renal US 07/12/20. (5) DVT prophylaxis: SCD's ordered. Ambulating. (6) Discharge planning issues: Discharge to home. Internal Medicine follow-up with Dr. Alexander. Urology follow-up with Dr. Díaz / [facility]. Total Time Total Time Spent Total Time Spent (In Minutes): 35 Discharge Plan Discharge Items Patient Disposition: Home - Self-Care Reason For Visit: ABDOMINAL PAIN Discharge Diagnosis: kidney stone Activity: Resume your previous activity Non-emergency contact: Primary Care Provider, Hospitalist and Urologist Call non-emergency contact if: you have any medication questions, your symptoms worsen and your temperature is above 101 Follow-up/Referrals: Yumi Stewart MD [Primary Care Provider] - (Date & Time 08/03/2020 10:20 AM Provider Yumi Alexander MD Department General Internal Medicine [facility] ) Diet: Regular Addtl Attending Provider Instructions: MEDICATION CHANGES: tamsulosin (Flomax) 0.4 mg at bedtime (relaxes muscles in ureter) phenazopyridine (Pyridium) 100 mg every 8 hours as needed for bladder pain may cause orange coloration of urine oxybutynin (Ditropan) 5 mg every 8 hours as needed for bladder spasm ondansetron (Zofran) 4 mg dissolved under tongue every 6 hour as needed for nausea acetaminophen (Extra Strength Tylenol) 2 pills every 6 hours as needed for moderate pain oxycodone / acetaminophen (Percocet) 1 pill every 6 hours as needed for severe pain SUMMARY OF TEST RESULTS: Ultrasound of kidneys shoed a stone in the left ureter and a possible small stone in the left kidney. Urine did not appear to be infected. Fasting blood sugar was a little high on 07/13/20 (it was 143). Blood sugars can run high when we are ill or under stress (for example, having pain). Please have Dr. Alexander recheck a fasting blood sugar when convenient. Chest x-ray suggested a possible goiter. Outpatient ultrasound of thyroid recommended. If goiter confirmed, thyroid levels should be checked. COVID screening test was negative. Hepatitis C screening test was negative. RECOMMENDATIONS FOR FOLLOW-UP: Urology follow-up with Dr. Díaz for removal of stone and stent. OTHER INSTRUCTIONS: Drink plenty of fluids to prevent formation of kidney stones. Seek medical attention if you have: * temperature above 101 * recurrent pain in back * burning with urination or persistent blood in urine * chest pain or trouble breathing * abdominal pain, nausea, vomiting * diarrhea, dark stools or bloody stools * any unanswered questions or concerns Call 911 if symptoms are severe. Please take good care of yourself. Call if you have any questions or problems. You can reach a [facility] hospitalist on duty at [facility] 24 hours a day by calling [phone]. My cell # is [phone]. Pending Studies at Discharge: No Stand-Alone Forms: My [facility], Opioid Pain Management, Work/School Release (Inpt), Smoking Cessation Medications and DC Order Prescriptions: New tamsulosin 0.4 mg capsule 0.4 mg PO HS Qty: 14 RF: 0 phenazopyridine 100 mg tablet 100 mg PO Q8H PRN (Reason: bladder pain) Qty: 10 RF: 0 ondansetron 4 mg tablet,disintegrating 4 mg PO Q6H PRN (Reason: nausea and vomiting) Qty: 4 RF: 1 acetaminophen 500 mg tablet 1,000 mg PO Q6H PRN (Reason: fever or pain) Qty: 60 RF: 0 oxycodone-acetaminophen [Percocet] 10-325 mg tablet 1 tab PO Q8H PRN (Reason: severe pain) Qty: 6 RF: 0 oxybutynin chloride 5 mg tablet 5 mg PO Q8H PRN (Reason: bladder spasms) Qty: 10 RF: 0 Discharge Orders: Discharge Order (Routine); Ordered 07/14/20 Ordered By: Suhas Gerardo/Other Patient Handouts: Understanding Kidney Stones, Preventing Kidney Stones Admission Data Admit Date/Time: 07/13/20 03:15 Attending Provider: Suhas Reid Admit Provider: Thierno Whitlock Primary Care Provider: Yumi Stewart Other Providers: Thierno Whitlock ; Daljit Middleton ; Vj Kaufman ; Juan Westfall I. ; Amarjit Harper ; eDya Metzger ; Justine Nielson ; Yann Díaz ; Danielle Villarreal ; María Grant ; Aishwarya Dempsey ; Ke Luna ; Naya Washburn ; Suad Mcintosh Other Interventions: Discharge Summary Assessment (RN) Last Done: 07/14/20 12:41
== END 2020-07-14 13:36 | disposition home or self-care (01) | DRG 661 ==
LOC: ED 22:09 → 3N 07-13 03:15
DX: N13.1 Hydronephrosis with ureteral stricture, not elsewhere classified; R11.2 Nausea with vomiting, unspecified